=== PATIENT | male | born 1945 | race American Indian/Alaskan Native ===

== ENCOUNTER 2017-09-21 08:39 | Emergency (ER) | payer MEDICARE ==
[2017-09-21] MEDS ORDERED: TETRACAINE 0.5% OS PRN (09:17)
--- NOTE | 2017-09-21 10:06 | Anesthesia Consultation ---
Anesthesia Consult and Med Hx Date of service: 09/21/17 - Airway Anesthetic Teeth Evaluation: Edentulous ROM Head & Neck: Adequate Mental/Hyoid Distance: Adequate Mallampati Class: Class III Intubation Access Assessment: Possibly Difficult - Pulmonary Exam CTA: No (exp wheeze) - Cardiac Exam Cardiac Exam: RRR - Pre-Operative Health Status ASA Pre-Surgery Classification: ASA3 Proposed Anesthetic Plan: MAC - Pre-Anesthesia Comment Pre-Anesthesia Comments: poor historian. cant recall BP medications. cant recall cardiac procedure..possibly cardiac cath. - Pulmonary Hx Smoking: Yes (quit 10 yrs ago ) SOB: Yes COPD: Yes - Cardiovascular System Hx Hypertension: Yes Hx Peripheral Vascular Disease: Yes
--- NOTE | 2017-09-21 10:07 | Anesthesia Day of Surgery ---
Anesthesia Day of Surgery - Day of Surgery Patient Examined: Yes Patient H&P Reviewed: Yes Patient is NPO: Yes
[2017-09-21] MEDS ORDERED: PROVENTIL IH NR (10:15)
[2017-09-21] MEDS: MYDRIACYL OS SCH ×3 (10:15→10:25)
[2017-09-21] MEDS: VIGAMOX OS SCH ×3 (10:15→10:25)
[2017-09-21] MEDS: AK-Dilate OS SCH ×3 (10:15→10:25)
[2017-09-21] MEDS ORDERED: DILAUDID ONE (10:53)
[2017-09-21] MEDS ORDERED: VERSED ONE (10:53)
[2017-09-21] MEDS ORDERED: NACL 0.9% 1000 ML 1,000 ML IV ONE (11:37)
--- NOTE | 2017-09-21 11:44 | Emergency Department Report ---
ED Shortness of Breath HPI - General Chief Complaint: Dyspnea/Respdistress Time Seen by Provider: 09/21/17 11:37 - History of Present Illness Initial Comments: Patient is 72 years old male history of COPD and diabetes brought from preop for evaluation of sudden onset of diaphoresis and low blood pressure. She went there for a cataract surgery. Medication was given that before the event was Versed and Dilaudid. Patient was wheezing when examined and was given an albuterol treatment, patient stated that he felt better after that. Patient denying any shortness of breath, chest pain or dizziness. He is only complaint now is crampy abdominal pain and cramping in his leg too. MD Complaint: shortness of breath - Related Data Home Medications Medication Instructions Recorded Confirmed Last Taken Insulin Glargine [Lantus VIAL] 30 unit SUB-Q BID 09/29/16 09/21/17 09/20/17 23: 55 30 UNITS metFORMIN [Glucophage] 1,000 mg PO BID 09/29/16 09/21/17 09/20/17 23:00 Allergies Allergy/AdvReac Type Severity Reaction Status Date / Time No Known Allergies Allergy Verified 09/29/16 16:47 ED Review of Systems ROS: Stated complaint: Other details as noted in HPI Comment: All other systems reviewed and negative Constitutional: denies: chills, fever Respiratory: shortness of breath, SOB at rest. denies: cough Cardiovascular: denies: chest pain, palpitations, dyspnea on exertion Gastrointestinal: abdominal pain (cramping all over). denies: nausea, vomiting , diarrhea, constipation, hematemesis, melena, hematochezia Genitourinary: denies: urgency, dysuria, frequency, hematuria Skin: denies: rash, lesions Neurological: denies: headache, weakness, numbness, paresthesias ED Past Medical Hx - Past Medical History Hx Hypertension: Yes Hx Heart Attack/AMI: No Hx Congestive Heart Failure: No Hx Diabetes: Yes Hx Deep Vein Thrombosis: No Hx Pulmonary Embolism: No Hx Arthritis: Yes (KNEES, LEGS) Hx COPD: Yes Hx Tuberculosis: No Hx HIV: No - Social History Smoking Status: Former Smoker - Medications Home Medications: Home Medications Medication Instructions Recorded Confirmed Last Taken Type Insulin Glargine [Lantus VIAL] 30 unit SUB-Q BID 09/29/16 09/21/17 09/20/17 23: 55 History 30 UNITS metFORMIN [Glucophage] 1,000 mg PO BID 09/29/16 09/21/17 09/20/17 23:00 History ED Physical Exam - General Limitations: No Limitations General appearance: alert, in no apparent distress - Head Head exam: Present: atraumatic, normocephalic - Eye Eye exam: Present: normal appearance, PERRL - ENT ENT exam: Present: normal exam, mucous membranes dry, mucous membranes moist - Neck Neck exam: Present: normal inspection - Respiratory Respiratory exam: Present: normal lung sounds bilaterally. Absent: respiratory distress, wheezes, rales, rhonchi, stridor, chest wall tenderness, accessory muscle use, decreased breath sounds, prolonged expiratory - Cardiovascular Cardiovascular Exam: Present: regular rate, normal rhythm, normal heart sounds - GI/Abdominal GI/Abdominal exam: Present: soft, normal bowel sounds. Absent: distended, tenderness, guarding, rebound, rigid, diminished bowel sounds, organomegaly, mass, bruit, pulsatile mass, hernia - Extremities Exam Extremities exam: Present: normal inspection, full ROM, normal capillary refill - Back Exam Back exam: Present: normal inspection, full ROM. Absent: tenderness, CVA tenderness (R), CVA tenderness (L), muscle spasm, paraspinal tenderness, vertebral tenderness - Neurological Exam Neurological exam: Present: alert, oriented X3, CN II-XII intact, normal gait. Absent: motor sensory deficit - Skin Skin exam: Present: warm, intact, normal color. Absent: dry, cyanosis, diaphoretic, erythema ED Course Vital Signs 09/21/17 09/21/17 09/21/17 09:00 09:33 11:26 Temperature 98.0 F 98.0 F Pulse Rate 113 H 113 H 98 H Respiratory 22 22 22 Rate Blood Pressure 112/81 112/81 O2 Sat by Pulse 95 95 94 Oximetry 09/21/17 09/21/17 09/21/17 11:30 11:36 11:45 Temperature 98.2 F Pulse Rate 97 H 96 H 91 H Respiratory 24 19 16 Rate Blood Pressure 89/65 93/69 O2 Sat by Pulse 94 99 100 Oximetry 09/21/17 09/21/17 09/21/17 12:00 12:15 12:30 Temperature Pulse Rate 85 93 H 88 Respiratory 16 13 16 Rate Blood Pressure 102/64 99/68 99/75 O2 Sat by Pulse 96 96 96 Oximetry 09/21/17 09/21/17 09/21/17 12:45 13:01 13:15 Temperature Pulse Rate 97 H 93 H 86 Respiratory 18 15 15 Rate Blood Pressure 113/77 113/77 113/77 O2 Sat by Pulse 99 98 97 Oximetry 09/21/17 09/21/17 09/21/17 13:31 13:45 14:00 Temperature Pulse Rate 101 H 89 99 H Respiratory 24 16 21 Rate Blood Pressure 113/77 113/77 103/77 O2 Sat by Pulse 98 94 97 Oximetry 09/21/17 09/21/17 09/21/17 14:15 14:35 14:45 Temperature Pulse Rate 95 H 98 H Respiratory 21 15 Rate Blood Pressure 103/77 103/77 103/77 O2 Sat by Pulse 96 99 Oximetry - Reevaluation(s) Reevaluation #1: 09/21/17 15:52 Patient stated that he is feeling much better. Denied any shortness of breath chest pain weakness numbness or tingling sensation. Patient is asking for something to eat, he stated that he is really hungry. ED Medical Decision Making - Lab Data Result diagrams: 09/21/17 Unknown 09/21/17 Unknown - EKG Data -: EKG Interpreted by Ri EKG shows normal: sinus rhythm Rate: normal - EKG Data Interpretation: no acute changes - Radiology Data Radiology results: report reviewed Referring Physician: STACEY ABBASI Patient Name: MICHAEL ZEPEDA Date of : 1945 Sex: Male Report Date: 2017-09-21 Report Status: Finalized Findings [facility] [address] [place] [address] Cat Scan Report Signed Patient: MICHAEL ZEPEDA MR#: [id number] : 1945 Acct:[id number] Age/Sex: 72 / M ADM Date: 09/21/17 Loc: ED Attending Dr: Ordering Physician: STACEY ABBASI Date of Service: 09/21/17 Procedure(s): CT angio chest Accession Number(s): [id number] cc: STACEY ABBASI CTA CHEST: HISTORY: Chest pain with syncope. COMPARISON: none. TECHNIQUE: Helical CT in 1.25mm intervals following IV contrast. Pulmonary embolus protocol. Sagittal and coronal reformatted images. Rotational MIP images. FINDINGS: Contrast bolus is slightly limited. No large central pulmonary embolus is identified. Resolution in the distal, small pulmonary arteries is nondiagnostic. Thyroid gland: Normal. Tracheobronchial tree: Normal. Esophagus: Normal. Heart: Normal. Pericardium: Normal. Mediastinum: Normal. Lung Ansari: normal. Pleural Spaces: Normal. Musculoskeletal: Normal. IMPRESSION: Slightly limited contrast injection. No large central pulmonary embolus is detected. Otherwise, unremarkable CT chest. Transcribed By: TTR Dictated By: IVANIA WOODS JR, MD Electronically Authenticated By: IVANIA WOODS JR, MD Signed Date/Time: 09/21/171512 DD/ 11 TD/TT: 09/21/171512 Critical care attestation.: If time is entered above; I have spent that time in minutes in the direct care of this critically ill patient, excluding procedure time. ED Disposition Clinical Impression: Shortness of breath, Hypotension, Hypoglycemia Disposition: DC-01 TO HOME OR SELFCARE Is pt being admited?: No Condition: Stable Instructions: Syncope (ED), Dyspnea (ED) Referrals: EVANGELINA NARAYANAN MD [Primary Care Provider] - 3-5 Days
[2017-09-21 12:12] LABS: Basophils % (Auto) 0.5 % (0.0-1.8); Eosinophils % (Auto) 3.3 % (0.0-4.3); Hematocrit 40.1 % (35.5-45.6); Hemoglobin 12.8 gm/dl (11.8-15.2); Mean Corpuscular HGB Conc 32 % (32-34); Mean Corpuscular Hemoglobin 27 pg (28-32); Mean Corpuscular Volume 83 fl (84-94); Platelet Count 272 K/mm3 (140-440); Red Blood Count 4.82 M/mm3 (3.65-5.03); Red Cell Distribution Width 16.1 % (13.2-15.2); White Blood Count 9.3 K/mm3 (4.5-11.0)
[2017-09-21 12:23] LABS: INR 1.05 (0.87-1.13)
[2017-09-21 12:24] LABS: Partial Thromboplastin Time 25.2 Sec. (24.2-36.6)
--- NOTE | 2017-09-21 12:31 | XRay Report ---
AP CHEST: HISTORY: Dyspnea AP view of the chest demonstrates a normal mediastinal and cardiac contour with clear lungs and normal bony and soft tissue structures. IMPRESSION: Unremarkable AP chest.
[2017-09-21 12:36] LABS: Alanine Aminotransferase 18 units/L (7-56); Albumin 3.9 g/dL (3.9-5); Albumin/Globulin Ratio 1.1 %; Alkaline Phosphatase 97 units/L (35-129); Anion Gap 23 mmol/L; BUN/Creatinine Ratio 13; Blood Urea Nitrogen 13 mg/dL (9-20); Carbon Dioxide 19 mmol/L (22-30); Chloride 98.4 mmol/L (98-107); Glucose 287 mg/dL (75-100); Potassium 4.5 mmol/L (3.6-5.0); Sodium 136 mmol/L (137-145); Total Protein 7.6 g/dL (6.3-8.2)
--- NOTE | 2017-09-21 15:18 | Cat Scan Report ---
CTA CHEST: HISTORY: Chest pain with syncope. COMPARISON: none. TECHNIQUE: Helical CT in 1.25mm intervals following IV contrast. Pulmonary embolus protocol. Sagittal and coronal reformatted images. Rotational MIP images. FINDINGS: Contrast bolus is slightly limited. No large central pulmonary embolus is identified. Resolution in the distal, small pulmonary arteries is nondiagnostic. Thyroid gland: Normal. Tracheobronchial tree: Normal. Esophagus: Normal. Heart: Normal. Pericardium: Normal. Mediastinum: Normal. Lung Ansari: normal. Pleural Spaces: Normal. Musculoskeletal: Normal. IMPRESSION: Slightly limited contrast injection. No large central pulmonary embolus is detected. Otherwise, unremarkable CT chest.
[2017-09-21 16:16] VITALS: BP 127/84
== END 2017-09-21 17:01 | disposition home or self-care (01) ==
LOC: ED 08:39 → OR 08:39 → ED 17:01 → EDSTATUS 19:30
DX: I95.9 Hypotension, unspecified (principal); E11.649 Type 2 diabetes mellitus with hypoglycemia without coma; R06.02 Shortness of breath; R10.84 Generalized abdominal pain; I25.2 Old myocardial infarction; J44.9 Chronic obstructive pulmonary disease, unspecified; M17.9 Osteoarthritis of knee, unspecified
CPT/HCPCS: 36415; 71010; 71275; 80053; 82962; 84484; 85025; 85379; 85610; 85730; 93005; 93010; 94640; 96361; 96374; 96375; 96376; 99285; J1170; J2250; J2930; Q9967; J1815

== ENCOUNTER 2018-01-18 06:36 | Day surgery (SDC) | payer MEDICARE ==
--- NOTE | 2018-01-18 08:14 | Anesthesia Consultation ---
Anesthesia Consult and Med Hx Date of service: 01/18/18 - Airway Anesthetic Teeth Evaluation: Edentulous ROM Head & Neck: Inadequate Mental/Hyoid Distance: Adequate Mallampati Class: Class III Intubation Access Assessment: Possibly Difficult - Pulmonary Exam CTA: No (crackles in bases. turbulent upper airway sounds. Effortful breathing ) - Cardiac Exam Cardiac Exam: RRR - Pre-Operative Health Status ASA Pre-Surgery Classification: ASA3 Proposed Anesthetic Plan: MAC - Pulmonary Hx Smoking: Yes (quit 10 yrs ago ) SOB: Yes COPD: Yes Hx Sleep Apnea: No - Cardiovascular System Hx Hypertension: Yes Hx Heart Attack/AMI: No Hx Angina: No Hx Heart Murmur: No Hx Peripheral Vascular Disease: Yes - Hematic Hx Anemia: No - Other Systems Hx Alcohol Use: Yes (NOT FOR 5 YEARS) Hx Substance Use: No Hx Cancer: No
--- NOTE | 2018-01-18 08:14 | Anesthesia Day of Surgery ---
Anesthesia Day of Surgery - Day of Surgery Patient Examined: Yes Patient H&P Reviewed: Yes Patient is NPO: Yes
[2018-01-18] MEDS ORDERED: DILAUDID IV PRN (08:15)
[2018-01-18] MEDS ORDERED: ZOFRAN IV PRN (08:15)
[2018-01-18] MEDS ORDERED: NARCAN 0.4 MG/1 ML IV PRN (08:15)
[2018-01-18] MEDS ORDERED: TETRACAINE 0.5% OD PRN (08:17)
[2018-01-18] MEDS: MYDRIACYL OD SCH ×3 (08:40→08:50)
[2018-01-18] MEDS: VIGAMOX OD SCH ×3 (08:40→08:50)
[2018-01-18] MEDS: AK-Dilate OD SCH ×3 (08:40→08:50)
[2018-01-18] MEDS ORDERED: VERSED ONE (09:32)
[2018-01-18] MEDS ORDERED: DIAMOX PO ONE (10:01)
--- NOTE | 2018-01-18 10:02 | Operative Report ---
Operative Report Operative Report: PATIENT'S NAME: DATE OF : DATE OF SURGERY: 01/18/2018 PREOPERATIVE DIAGNOSIS: Cataract right eye POSTOPERATIVE DIAGNOSIS: Same OPERATIVE PROCEDURE: Phacoemulsification with intraocular lens implantation, right eye SURGEON: Guillermina Pino M.D. ROUND UP RING HAND SURGEON: Dinorah Lens: [id number] 19.5 D ANESTHESIA: Monitored anesthesia care in combination with topical and intracameral anesthesia because of the established specific risk of reflux, arrhythmias, or anxiety attacks associated with ocular manipulation, as well as the difficulty of the assembly line upholsterer to manage such potentially catastrophic events while simultaneously attempting to complete the surgical procedure and was deemed necessary for the patient's safety to have an [employer] present during the procedure whenever possible. An [employer] was utilized to regulate the intravenous sedation of the patient so the patient was cooperative yet not asleep in order for the patient to successfully maintain fixation of the eye on the operating light of the microscope. COMPLICATIONS: No surgical complications No blood loss. ALLERGIES: N known drug allergies PROGNOSIS: Excellent INDICATIONS FOR SURGERY: The patient is undergoing surgery in the hopes of eliminating or improving these visual difficulties. PROCEDURE: After arriving at the surgery center, the patient was given topical anesthetic and dilating drops, as noted in the record. The patient was then taken into the operating room and given more anesthetic drops. The eyelids , lashes, and lid margins were scrubbed with Betadine solution, and the patient was draped. The Nurse [employer] administered IV sedation and monitored the patient during the procedure. The eye was then fixated with a 0.12, and a stab incision was made in the peripheral clear cornea into the anterior chamber. This was made on my left side. Viscoelastic was next used to fill the anterior chamber. The eye was once again fixated with the 0.12 forceps and a keratome was used make an incision in clear cornea peripherally on my right hand side temporally. The capsule forceps were used to open the central anterior capsule and then make a continuous round capsulotomy. Hydrodissection was carried out utilizing a cannula and balanced salt solution to delineate the cortical material from the capsule and the nucleus from the cortical material. The phaco tip was introduced into the eye and used to remove the anterior cortical material in the area of the capsulotomy. Then the phaco tip was buried into the nucleus, and a chopping instrument was introduced into the eye and used to provide countertraction in the nucleus between this instrument and the phaco tip fracturing the nucleus. This procedure was repeated multiple times, providing multiple small segments of the lens, and then the phaco tip was used to remove each of these segments. An I/A tip was then used to remove the remaining cortex. The anterior chamber was refilled with viscoelastic. An one-piece, acrylic intraocular lens was then placed into an inserting cartridge. The tip of the inserting cartridge was introduced into the keratome incision and into the anterior chamber. The implant was gently advanced through the cartridge and into the eye, where it unfolded, and both haptics were placed in the capsular bag, where it centered nicely and appeared to be well fixated. After placement of the intraocular lens, the I~and~A handpiece was placed back into the eye and used to remove the viscoelastic, including viscoelastic that was behind the optic of the intraocular lens. The anterior chamber was then filled with balanced salt solution, and hydration of the wound was used to cause swelling of the wound and more appropriate watertight closure. When the wound was found to be firm, the patient was asked to comment on how bright the light was. If there was no light perception at all or if the light was substantially dimmer than during the rest of the surgery, the amount of fluid in the eye was decompressed to lower the intraocular pressure until the patient could see the bright light again. This was done to avoid any damage or decreased blood flow to the optic nerve. MEDICATIONS APPLIED AT END OF SURGERY: One drop of Pred Forte and Vigamox The patient was given a shield to wear at night and was instructed not to rub or push on the eye. DISCHARGE SUMMARY: The patient was released in stable condition. The patient and those with the patient were given a written sheet of postoperative instructions and counseling on any abnormal laboratory studies. The patient is to see us tomorrow for follow-up in the office and is to call immediately for any difficulties. Guillermina Pino M.D. Date
--- NOTE | 2018-01-18 10:03 | Short Stay Summary ---
Short Stay Documentation Date of service: 01/18/18 - History H&P: obtained from office - Allergies and Medications Current Medications: Allergies No Known Allergies Allergy (Verified 09/29/16 16:47) Home Medications Medication Instructions Recorded Confirmed Last Taken Type Insulin Glargine [Lantus VIAL] 30 unit SUB-Q BID 09/29/16 01/18/18 01/17/18 18: 00 History 30 UNITS metFORMIN [Glucophage] 500 mg PO BID 09/29/16 01/18/18 01/17/18 History Active Medications Acetazolamide (Diamox) 500 mg PO ONCE ONE Stop: 01/18/18 10:02 Hydromorphone HCl (Dilaudid) 0.25 mg IV Q10MIN PRN PRN Reason: Pain, Moderate (4-6) Stop: 01/18/18 16:00 Moxifloxacin HCl (Vigamox) 1 drops OD Q5MIN [facility] Stop: 01/20/18 15:00 Last Admin: 01/18/18 08:50 Dose: 1 drops Naloxone HCl (Narcan 0.4 Mg/1 Ml) 0.1 mg IV Q2MIN PRN PRN Reason: Res Rate </= 8 or 02 SAT < 92% Ondansetron HCl (Zofran) 4 mg IV ONCE PRN PRN Reason: Nausea And Vomiting Stop: 01/18/18 16:00 Phenylephrine HCl (Ak-Dilate) 1 drops OD Q5MIN [facility] Stop: 01/20/18 15:00 Last Admin: 01/18/18 08:50 Dose: 1 drops Prednisolone Acetate (Pred Forte 1%) 1 drops OD QID [facility]AN Tetracaine HCl (Tetracaine 0.5%) 1 drops OD Q5M PRN PRN Reason: Analgesia Stop: 01/18/18 15:00 Last Admin: 01/18/18 08:36 Dose: 1 drops Tropicamide (Mydriacyl) 1 drops OD Q5MIN [facility] Stop: 01/20/18 15:00 Last Admin: 01/18/18 08:50 Dose: 1 drops - Brief post op/procedure progress note Date of procedure: 01/18/18 Pre-op diagnosis: right cataract Post-op diagnosis: same Procedure: Phacoemulsification with intraocular lens insertion right eye Anesthesia: MAC, local Surgeon: JYOTI OLIVARES Estimated blood loss: none Pathology: none Condition: stable - Disposition Condition at discharge: Good Disposition: DC-01 TO HOME OR SELFCARE - Discharge Diagnoses (1) Cataract Status: Acute Qualifiers: Cataract type: age-related Age-related cataract type: nuclear Laterality : right Qualified Code(s): H25.11 - Age-related nuclear cataract, right eye Short Stay Discharge Plan Follow up with: EVANGELINA NARAYANAN MD [Primary Care Provider] - 7 Days
[2018-01-18] MEDS ORDERED: PRED FORTE 1% ONE (10:25)
--- NOTE | 2018-01-18 10:43 | Post Anesthesia Evaluation ---
- Post Anesthesia Evaluation Patient Participated: Yes Airway Patent: Yes Stable Respiratory Function: Yes Nausea/Vomiting: No Temp > 96.8F: Yes Pain Manageable: Yes Adequeate Hydration: Yes Anesthesia Complications: No
[2018-01-18] MEDS ORDERED: PRED FORTE 1% OD SCH (14:00)
[2018-01-18 17:56] VITALS: BP 141/94
== END 2018-01-18 11:00 | disposition home or self-care (01) ==
LOC: OR 06:36
DX: E11.36 Type 2 diabetes mellitus with diabetic cataract (principal); I73.9 Peripheral vascular disease, unspecified; M19.90 Unspecified osteoarthritis, unspecified site; I10 Essential (primary) hypertension; J44.9 Chronic obstructive pulmonary disease, unspecified; E11.51 Type 2 diabetes mellitus with diabetic peripheral angiopathy without gangrene; E66.9 Obesity, unspecified; Z87.891 Personal history of nicotine dependence; Z68.41 Body mass index [BMI] 40.0-44.9, adult
CPT/HCPCS: 66984; 82962; J2250; V2632